=== PATIENT | male | born 1980 | race Hispanic/Latino ===

== ENCOUNTER 2022-02-01 10:23 | Inpatient (IN) | payer OTHER, SELFPAY ==
[2022-02-01 11:41] VITALS: BMI 23.0
[2022-02-01] MEDS ORDERED: Calcium Carbonate 500 MG ChewTAB PO PRN (12:18)
[2022-02-01] MEDS ORDERED: Senokot S 8.6-50 MG TAB PO PRN (12:18)
[2022-02-01] MEDS ORDERED: Ondansetron PF 4 MG/2 ML Vial IVP PRN (12:24)
[2022-02-01 13:22] LABS: Prothrombin Time 13.6 sec (12.0-14.7)
[2022-02-01 13:31] LABS: Anion Gap 14 mmol/L (10-20); BUN (Urea Nitrogen) 8 mg/dL (8.9-20.6); Calc. Creatinine Clearance 103 mL/min (70-130); Calcium 8.6 mg/dL (7.8-10.44); Carbon Dioxide 30 mmol/L (22-29); Chloride 96 mmol/L (98-107); Glucose 103 mg/dL (70-105); Potassium 3.1 mmol/L (3.5-5.1); Sodium 137 mmol/L (136-145)
[2022-02-01] MEDS: Morphine 2 MG/ML VIAL SLOW IVP PRN ×2 (14:00→20:26)
[2022-02-01] MEDS: NS 0.9% w/ 20 MEQ KCL 1,000 ML/1,000 ML BAG IV SCH (14:01)
[2022-02-01 22:48] LABS: SARS-CoV-2 PCR by NAA Not Detected (NotDetected)
[2022-02-02] MEDS: NS 0.9% w/ 20 MEQ KCL 1,000 ML/1,000 ML BAG IV SCH (02:29)
[2022-02-02 05:27] LABS: #Eosinphils 0.1 thou/uL (0.0-0.7); #Lymphocytes 1.8 thou/uL (1.20-3.40); #Neutrophils 7.5 thou/uL (1.40-6.50); %Basophils 0.4 % (0.0-1.0); %Eosinophils 0.8 % (0.0-10.0); %Lymphocytes 17.1 % (21.0-51.0); %Monocytes 9.4 % (0.0-10.0); %Neutrophils 72.3 % (42.0-75.0); Hemoglobin 14.9 g/dL (14.0-18.0); Mean Corpuscular HGB CONC 33.4 g/dL (32.0-36.0); Mean Corpuscular Volume 89.8 fL (78.0-98.0); Mean Platelet Volume 9.1 fL (7.4-10.4); Platelet Count 235 thou/uL (130-400); RBC Distribution Width 12.1 % (11.5-14.5); Red Blood Cell (RBC) Count 4.97 mill/uL (4.70-6.10); White Blood Cell (WBC) Count 10.3 thou/uL (4.8-10.8)
[2022-02-02 05:50] LABS: Anion Gap 14 mmol/L (10-20); BUN (Urea Nitrogen) 7 mg/dL (8.9-20.6); Calc. Creatinine Clearance 105 mL/min (70-130); Calcium 8.6 mg/dL (7.8-10.44); Carbon Dioxide 28 mmol/L (22-29); Chloride 98 mmol/L (98-107); Glucose 94 mg/dL (70-105); Magnesium 1.6 mg/dL (1.6-2.6); Sodium 137 mmol/L (136-145); Uric Acid 8.1 mg/dL (3.5-7.2)
[2022-02-02 05:55] LABS: Potassium 2.7 mmol/L (3.5-5.1)
[2022-02-02] MEDS ORDERED: Electrolyte Replacement Protocol FS PRN (06:30)
[2022-02-02] MEDS ORDERED: Magnesium 2 GM/50 ML(in water) 2 GM in Premix Bag 1 BAG IVPB SCH (06:30)
[2022-02-02] MEDS: Potassium Chloride 40 MEQ in Sodium Chloride 0.9% 250 ML 250 ML IVPB SCH ×2 (07:55→13:50)
[2022-02-02] MEDS ORDERED: Lidocaine 1% (PF) 30 ML VIAL SC SCH (08:15)
[2022-02-02] MEDS ORDERED: Potassium Chloride 20 MEQ TAB PO SCH (15:15)
[2022-02-02] MEDS ORDERED: Indomethacin 25 mg Capsule PO SCH (18:48)
[2022-02-02 20:02] LABS: Anion Gap 11 mmol/L (10-20); BUN (Urea Nitrogen) 9 mg/dL (8.9-20.6); Calc. Creatinine Clearance 96 mL/min (70-130); Calcium 9.2 mg/dL (7.8-10.44); Carbon Dioxide 32 mmol/L (22-29); Chloride 96 mmol/L (98-107); Glucose 120 mg/dL (70-105); Sodium 136 mmol/L (136-145); Uric Acid 8.2 mg/dL (3.5-7.2)
[2022-02-02 20:12] LABS: Potassium 2.8 mmol/L (3.5-5.1)
[2022-02-02] MEDS: Potassium Chloride 20 MEQ TAB PO SCH (22:55)
[2022-02-03] MEDS: NS 0.9% w/ 20 MEQ KCL 1,000 ML/1,000 ML BAG IV SCH (01:04)
[2022-02-03] MEDS: Potassium Chloride 20 MEQ TAB PO SCH (02:38)
[2022-02-03] MEDS: Acetaminophen 325 MG TAB PO PRN ×3 (02:42→17:48)
[2022-02-03 07:01] LABS: Anion Gap 14 mmol/L (10-20); BUN (Urea Nitrogen) 11 mg/dL (8.9-20.6); Calc. Creatinine Clearance 94 mL/min (70-130); Calcium 8.8 mg/dL (7.8-10.44); Carbon Dioxide 26 mmol/L (22-29); Chloride 101 mmol/L (98-107); Glucose 97 mg/dL (70-105); Potassium 3.5 mmol/L (3.5-5.1); Sodium 137 mmol/L (136-145)
[2022-02-03] MEDS: Indomethacin 25 mg Capsule PO SCH ×3 (08:52→20:05)
[2022-02-03] MEDS ORDERED: Potassium Chloride 20 MEQ TAB PO SCH (09:00)
[2022-02-03 15:08] LABS: Anion Gap 14 mmol/L (10-20); BUN (Urea Nitrogen) 11 mg/dL (8.9-20.6); Calc. Creatinine Clearance 105 mL/min (70-130); Carbon Dioxide 27 mmol/L (22-29); Chloride 102 mmol/L (98-107); Glucose 88 mg/dL (70-105); Potassium 3.7 mmol/L (3.5-5.1); Sodium 139 mmol/L (136-145)
[2022-02-03] MEDS: HYDROcodone/Acetaminophen 5/325 mg Tablet PO PRN (20:04)
[2022-02-04 09:09] VITALS: BP 110/71; TEMP 97.9
[2022-02-04] MEDS: HYDROcodone/Acetaminophen 5/325 mg Tablet PO PRN (10:01)
[2022-02-04] MEDS: Indomethacin 25 mg Capsule PO SCH (10:01)
[2022-02-05 12:37] LABS: CCP IgG Antibody 1.1 EliAU/mL (<7 Negative); Rheumatoid Factor IgA Antibody 4.4 IU/mL (<14 Negative); Rheumatoid Factor IgM Antibody Less than 0.5 IU/mL (<3.5 Negative)
== END 2022-02-04 12:15 | disposition home or self-care (01) | DRG 554 ==
LOC: MSONC 11:13
PROVIDERS: ADMIT Family Medicine; ATTEND Family Medicine
PROC: 0S9F3ZX Drainage of Right Ankle Joint, Percutaneous Approach, Diagnostic (ICD-10-PCS; principal; 2022-02-02)
DX: M10.9 Gout, unspecified (principal); E87.6 Hypokalemia; Z20.822 Contact with and (suspected) exposure to COVID-19; E83.42 Hypomagnesemia; M25.471 Effusion, right ankle
CPT/HCPCS: 36415; 80048; 83520; 83735; 84550; 85025; 85610; 85652; 86140; 86200; 87070; 87205; 89060; J2270; J3475; J3480; J7050; U0003; U0005